=== PATIENT | female | born 1985 | race African-American/Black ===

== ENCOUNTER 2020-04-08 17:03 | Emergency (ER) | payer OTHER ==
[2020-04-08 17:11] VITALS: BP 109/69; PULSE 65; TEMP 98.1; BMI 24.2
[2020-04-08] MEDS ORDERED: TETANUS AND DIPHTHERIA TOXOID 0.5 ML DISP.SYRIN IM ONE (17:19)
[2020-04-08] MEDS ORDERED: DIPHTH,PERTUSS(ACELL),TET 0.5 ML DISP.SYRIN IM ONE (17:44)
[2020-04-08 18:08] LABS: BASO % 1.1 % (0-2.0); EOS % 7.4 % (0-4.5); HEMATOCRIT 35.4 % (32.4-45.2); HEMOGLOBIN 11.9 GM/dL (10.7-15.3); LYMPH % 38.4 % (8-40); MCH 27.4 pg (25.7-33.7); MCHC 33.6 g/dl (32.0-36.0); MEAN CELL VOLUME 81.6 fl (80-96); MEAN PLT VOLUME 9.4 fl (7.5-11.1); MONO % 6.9 % (3.8-10.2); NEUT % 46.2 % (42.8-82.8); PLATELET COUNT 287 K/MM3 (134-434); RBC 4.34 M/mm3 (3.60-5.2); WHITE BLOOD COUNT 5.2 K/mm3 (4.0-10.0)
[2020-04-08 18:28] LABS: CHLORIDE 108 mmol/L (98-107); SODIUM 140 mmol/L (136-145)
[2020-04-08 18:30] LABS: BLOOD UREA NITROGEN 17.5 mg/dL (7-18); CALCIUM 9.2 mg/dL (8.5-10.1); GLUCOSE,RANDOM 92 mg/dL (74-106)
[2020-04-08 18:31] LABS: ALBUMIN 3.9 g/dl (3.4-5.0); ANION GAP 7 MMOL/L (8-16); CO2 25 mmol/L (21-32)
[2020-04-08 18:33] LABS: CHOLESTEROL 192 mg/dL (50-200); CREATININE 0.9 mg/dL (0.55-1.3); SGOT/AST 13 U/L (15-37); SGPT/ALT 22 U/L (13-61)
[2020-04-08 18:34] LABS: TRIGLYCERIDES 48 mg/dL (0-150)
[2020-04-08 18:35] LABS: BILIRUBIN,TOTAL 0.2 mg/dL (0.2-1); PHOSPHOROUS 4.2 mg/dL (2.5-4.9); TOT PROT 7.5 g/dl (6.4-8.2)
[2020-04-08 18:36] LABS: ALK PHOS 48 U/L (45-117)
[2020-04-08 19:24] LABS: HIV INTERPRETATION NEGATIVE (NEGATIVE)
== END 2020-04-08 17:50 | disposition home or self-care (01) ==
LOC: JERFT 17:03
PROC: 3E0234Z Introduction of Serum, Toxoid and Vaccine into Muscle, Percutaneous Approach (ICD-10-PCS; principal; 2020-04-08)
DX: Z77.21 Contact with and (suspected) exposure to potentially hazardous body fluids (principal)
CPT/HCPCS: 36415; 80053; 82465; 84100; 84478; 84702; 85025; 86704; 86706; 86803; 87340; 87389; 99283-25